=== PATIENT | female | born 1935 | race Caucasian/White ===

== ENCOUNTER → 2016-07-24 | Outpatient (CLI) | payer OTHER ==
[~2016-07-24] MED LIST: ADULT LOW DOSE81 MG PO; AVALIDE 150-121 EACH PO; CALCIUM 600 +1 EAC8 PO; CALICUM 500+D1 EACH PO; FOSAMAX PLUS D1 EACH PO; NORCO 5-325 TA1 EACH PO; VITAMIN D3400 UNI2 PO; VITAMIN D400 UNI1 PO
== END ==
LOC: ULTRA 09:58
DX: R10.11 Right upper quadrant pain (principal)

== ENCOUNTER → 2016-08-05 | Outpatient (CLI) | payer OTHER | LOC: CAT 10:51 | DX: R06.02 Shortness of breath (principal); J90 Pleural effusion, not elsewhere classified; R10.9 Unspecified abdominal pain ==

== ENCOUNTER → 2018-09-30 | Outpatient (CLI) | payer OTHER | LOC: NUC 09-02 15:18 | DX: M85.89 Other specified disorders of bone density and structure, multiple sites (principal); M81.0 Age-related osteoporosis without current pathological fracture; Z78.0 Asymptomatic menopausal state ==

== ENCOUNTER → 2019-02-03 | Outpatient (CLI) | payer OTHER ==
--- NOTE | 2019-02-03 16:06 | 2DMMODE ---
[facility] [place] [address] 2 D/M-MODE ECHOCARDIOGRAM Name: MAYLIN PATE Room #: REG [facility]#: [id number] ������������� Admission: 02/03/19 ������������� Attend Phys: Jose Tapia, Discharge: ��� ������������� ��� Date of : 33 Date of Service: 02/03/19 1606 �� Report #: [id number] �������� ��������������������������������������������[id number] THIS REPORT FOR: //name// APPROVED REPORT Study performed: 02/03/2019 10:54:02 EXAM: Comprehensive 2D, Doppler, and color-flow Echocardiogram Patient Location: Out-Patient Room #: Echo Lab 2 Status: routine BSA: 1.46 HR: 74 bpm BP: 148/80 mmHg Rhythm: NSR Other Information Study Quality: Good Indications Mitral Valve Disease. 2D Dimensions RVDd: 38.06 mm IVSd: 9.40 (7-11mm) LVOT Diam: 18.81 (18-24mm) LVDd: 49.93 mm PWd: 10.54 (7-11mm) Ascending Ao: 32.09 (22-36mm) LVDs: 30.38 (25-40mm) Aortic Root: 26.23 mm Volumes Left Atrial Volume (Systole) Single Plane 4CH: 115.12 mL Single Plane 2CH: 109.15 mL LA ESV Index: 79.00 mL/m2 Aortic Valve AoV Peak Dashawn.: 1.59 m/s AO Peak Gr.: 10.08 mmHg LVOT Max P.53 mmHg LVOT Max V: 1.06 m/s [facility] Vmax: 1.86 cm2 AI Vmax: 4.18 m/s AI Vigo: 2.79 m/s2 AI PHT: 435.21 ms Mitral Valve [facility] [address] [place] [address] 2 D/M-MODE ECHOCARDIOGRAM Name: MAYLIN PATE Room #: [facility]#: [id number] ������������� Admission: 02/03/19 ������������� Attend Phys: Jose Tapia, Discharge: ��� ������������� ��� Date of : 33 Date of Service: 02/03/19 1606 �� Report #: [id number] �������� ��������������������������������������������[id number] E/A Ratio: 2.7 MV Decel. Time: 178.90 ms MV E Max Dashawn.: 2.04 m/s MV A Dashawn.: 0.76 m/s MV PHT: 51.88 ms IVRT: 65.74 ms Pulmonary Valve PV Peak Dashawn.: 0.77 m/s PV Peak Gr.: 2.38 mmHg Tricuspid Valve TR Peak Dashawn.: 2.50 m/s RAP Estimate: 5.00 mmHg TR Peak Gr.: 26.00 mmHg PA Pressure: 31.00 mmHg Left Ventricle The left ventricle is normal size. There is normal LV segmental wall motion. There is normal left ventricular wall thickness. The left ventricular systolic function is normal. LVEF is 60-65%. Severe diastolic dysfunction is present (restrictive filling). Right Ventricle The right ventricle is normal size. The right ventricular systolic function is normal. Atria Left atrium is severely dilated. The right atrium size is normal. Aortic Valve Aortic valve is mildly calcified. Mild aortic regurgitation. There is no aortic valvular stenosis. 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 Probable torn chordae seen prolapsing into the left atrium. Severe mitral regurgitation. Tricuspid Valve The tricuspid valve is normal in structure. Mild tricuspid regurgitation. Estimated PAP is 30-35mmHg. Pulmonic Valve The pulmonary valve is normal in structure. Trace pulmonic regurgitation. [facility] [address] [place] [address] 2 D/M-MODE ECHOCARDIOGRAM Name: MAYLIN PATE HELEN Room #: REG [facility].#: [id number] ������������� Admission: 02/03/19 ������������� Attend Phys: Jose Tapia, Discharge: ��� ������������� ��� Date of : 33 Date of Service: 02/03/19 1606 �� Report #: [id number] �������� ��������������������������������������������[id number] Great Vessels The aortic root is normal in size. The ascending aorta is normal in size. IVC is normal in size and collapses >50% with inspiration. Pericardium There is no pericardial effusion. <Conclusion> The left ventricular systolic function is normal. There is normal LV segmental wall motion. LVEF is 60-65%. Severe diastolic dysfunction Left atrium is severely dilated. Aortic valve is mildly calcified. Mild aortic regurgitation, no stenosis. 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 Probable torn chordae seen prolapsing into the left atrium. Severe, eccentric mitral regurgitation. Mild tricuspid regurgitation. Estimated pulmonary artery pressure of 30-35mmHg. There is no pericardial effusion. ��������������������������������������������� <ELECTRONICALLY SIGNED> ���������������������������������������� By: Primitivo Bush MD, [facility] ��������������������������������������������� 02/03/19 1606 1606 1606 Primitivo Bush MD, [facility] /INF
== END ==
LOC: CV 08:54
DX: I08.3 Combined rheumatic disorders of mitral, aortic and tricuspid valves (principal)

== ENCOUNTER → 2019-02-22 | Outpatient (CLI) | payer OTHER | LOC: RAD 09:20 | DX: J98.4 Other disorders of lung (principal); J90 Pleural effusion, not elsewhere classified; J44.9 Chronic obstructive pulmonary disease, unspecified ==

== ENCOUNTER → 2019-08-09 | Outpatient (CLI) | payer OTHER | LOC: ULTRA 08-02 15:43 | DX: I65.23 Occlusion and stenosis of bilateral carotid arteries (principal) ==

== ENCOUNTER 2020-06-17 10:48 | Emergency (ER) | payer OTHER ==
[~2020-06-17] VITALS: Ht 152.4 cm; Wt 40.8 kg
--- NOTE | ~2020-06-17 | EKG ---
[facility] [place] [address] ELECTROCARDIOGRAM REPORT Name: MAYLIN APTE Room #: [facility]#: [id number] Admission: 06/17/20 Attend Phys: Discharge: 06/17/20 Date of : 33 Report #: [id number] THIS REPORT FOR: cc: Cristino Selby Steven F. 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
[2020-06-17 11:52] LABS: URINE BILIRUBIN NEGATIVE (Negative); URINE BLOOD TRACE (Negative); URINE COLOR YELLOW; URINE GLUCOSE-RANDOM* NEGATIVE (Negative); URINE KETONES NEGATIVE (Negative); URINE LEUKOCYTES-REFLEX NEGATIVE (Negative); URINE NITRITE-REFLEX NEGATIVE (Negative); URINE PROTEIN (DIPSTICK) 2+ (Negative); URINE UROBILINOGEN 0.2 E.U./dl (0.2-1.0)
[2020-06-17 12:02] LABS: URINE CLARITY HAZY
[2020-06-17 12:06] LABS: ABSOLUTE NEUTROPHILS 9.3 thou/uL (1.4-8.2); BASOPHILS 0.3 % (0.0-2.0); EOSINOPHILS 0.1 % (0.0-3.0); HEMATOCRIT 45.8 % (37.0-47.0); HEMOGLOBIN 15.1 gm/dL (12.0-15.0); LYMPHOCYTES 9.9 % (24.0-44.0); MCH 32.3 pg (26.0-34.0); MCV 97.9 fL (80.0-100.0); MONOCYTES 6.8 % (1.0-8.0); POLYS 82.9 % (36.0-66.0); RBC 4.68 mil/uL (4.20-5.00); WBC 11.2 thou/uL (4.0-11.0)
[2020-06-17 12:14] LABS: HYALINE CASTS 0-3 Few /LPF (None Seen); MUCUS 4-6 Moderate strn/LPF (None Seen); SQUAMOUS 4-10 Moderate /LPF (0-3)
[2020-06-17 12:15] LABS: AMORPHOUS PHOSPHATES Few /LPF (None Seen); BACTERIA-REFLEX 1-9 Few /HPF (None Seen); URINE RBC 0-2 Rare /HPF (0-2); URINE WBC-REFLEX 0-5 Rare /HPF (0-5)
[2020-06-17 12:39] LABS: CALCIUM 10.1 mg/dL (8.5-10.1); CREATININE 1.4 mg/dL (0.6-1.0); POTASSIUM 3.4 mmol/L (3.5-5.1)
[2020-06-17 12:45] LABS: ALBUMIN 4.8 g/dL (3.4-5.0); TOTAL BILIRUBIN 0.8 mg/dL (0.2-1.0); TOTAL PROTEIN 7.9 g/dL (6.4-8.2)
[2020-06-17 13:26] LABS: PLATELET COUNT 221 thou/uL (150-400)
[2020-06-17 13:37] VITALS: BP 118/57
== END 2020-06-17 13:46 | disposition home or self-care (01) ==
LOC: ER 10:48
PROVIDERS: Physician Assistant
DX: R00.2 Palpitations (principal); R42 Dizziness and giddiness; M54.2 Cervicalgia; I10 Essential (primary) hypertension; Z90.49 Acquired absence of other specified parts of digestive tract; Z79.899 Other long term (current) drug therapy; Z79.82 Long term (current) use of aspirin; Z88.8 Allergy status to other drugs, medicaments and biological substances

== ENCOUNTER 2020-10-19 09:00 | Observation (INO) | payer OTHER ==
[~2020-10-19] VITALS: Ht 160 cm; Wt 48.1 kg
[2020-10-19 09:02] VITALS: BP 132/60
[2020-10-19] MEDS ORDERED: ALENDRONATE SOD70 MG PO (09:13)
[2020-10-19 09:32] LABS: ABSOLUTE NEUTROPHILS 6.5 thou/uL (1.4-8.2); BASOPHILS 0.6 % (0.0-2.0); EOSINOPHILS 0.2 % (0.0-3.0); HEMATOCRIT 41.8 % (37.0-47.0); HEMOGLOBIN 14.1 gm/dL (12.0-15.0); MCH 32.8 pg (26.0-34.0); MCHC 33.7 g/dL (28.0-37.0); MCV 97.2 fL (80.0-100.0); MONOCYTES 6.6 % (1.0-8.0); PLATELET COUNT 201 thou/uL (150-400); POLYS 80.6 % (36.0-66.0); RDW 12.7 % (10.5-14.5)
[2020-10-19 09:39] LABS: ANION GAP 9 mmol/L (7-16); BUN 14 mg/dL (7-18); CALCIUM 9.5 mg/dL (8.5-10.1); CHLORIDE 101 mmol/L (98-107); CO2 27 mmol/L (21-32); CREATININE 1.1 mg/dL (0.6-1.0); GLUCOSE 176 mg/dL (74-106); POTASSIUM 3.6 mmol/L (3.5-5.1); SODIUM 137 mmol/L (136-145)
[2020-10-19 09:43] LABS: PROTIME 10.9 Seconds (9.3-11.4)
[2020-10-19 09:50] LABS: ALBUMIN 4.1 g/dL (3.4-5.0); DIRECT BILIRUBIN 0.2 mg/dL (<0.1-0.2); SGOT 21 U/L (15-37); SGPT 21 U/L (30-65); TOTAL BILIRUBIN 0.9 mg/dL (0.2-1.0); TROPONIN-I <0.06 ng/mL (<0.06)
--- NOTE | 2020-10-19 14:39 | 2DMMODE ---
[facility] [place] [address] 2 D/M-MODE ECHOCARDIOGRAM Name: MAYLIN PATE Room #: 170-9 ADM IN M.R.#: [id number] Admission: 10/19/20 Attend Phys: Will Ibrahim MD Discharge: Date of : 33 Report #: [id number] THIS REPORT FOR: cc: Cristino Selby,Jg Oliver MD [facility] ~ APPROVED REPORT Study performed: 10/19/2020 13:32:40 EXAM: Comprehensive 2D, Doppler, and color-flow Echocardiogram Patient Location: ER Status: routine BSA: 1.43 HR: 94 bpm BP: 109/54 mmHg Rhythm: Atrial Fibrillation Other Information Study Quality: Good Indications Afib with RVR, severe MR. 2D Dimensions RVDd: 34.42 mm IVSd: 9.58 (7-11mm) LVOT Diam: 18.87 (18-24mm) LVDd: 46.40 mm PWd: 10.08 (7-11mm) Ascending Ao: 28.23 (22-36mm) LVDs: 24.83 (25-40mm) Aortic Root: 30.21 mm Volumes Left Atrial Volume (Systole) Single Plane 4CH: 82.97 mL Single Plane 2CH: 107.55 mL LA ESV Index: 72.00 mL/m2 Aortic Valve AoV Peak Dashawn.: 1.61 m/s AO Peak Gr.: 16.80 mmHg LVOT Max P.63 mmHg AO Mean Gr.: 5.00 mmHg AO V2 Mean: 0.94 m/s LVOT Max V: 1.18 m/s AO V2 VTI: 30.09 cm [facility] [address] [place] [address] 2 D/M-MODE ECHOCARDIOGRAM Name: MAYLIN PATE Room #: [facility] ADM IN [facility]#: [id number] Admission: 10/19/20 Attend Phys: Will Ibrahim MD Discharge: Date of : 33 Report #: [id number] [facility] Vmax: 2.05 cm2 Pulmonary Valve PV Peak Dashawn.: 1.20 m/s PV Peak Gr.: 5.73 mmHg Tricuspid Valve TR Peak Dashawn.: 2.06 m/s RAP Estimate: 10.00 mmHg TR Peak Gr.: 17.00 mmHg PA Pressure: 27.00 mmHg Left Ventricle The left ventricle is normal size. There is normal left ventricular wall thickness. Left ventricular systolic function is hyperdynamic. LVEF is 65-70%. This study is not technically sufficient to allow evaluation of the LV diastolic function due to atrial fibrillation. Right Ventricle The right ventricle is normal size. The right ventricular systolic function is normal. Atria Left atrium is severely dilated. The right atrium size is normal. Aortic Valve The aortic valve is normal in structure; mildly calcified. Mild aortic regurgitation. There is no aortic valvular stenosis. 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 Severe mitral regurgitation. Tricuspid Valve The tricuspid valve is normal in structure. Trace tricuspid regurgitation. Estimated PAP is 27mmHg. Pulmonic Valve The pulmonary valve is normal in structure. Trace pulmonic regurgitation. Great Vessels The aortic root is normal in size. The ascending aorta is normal in size. IVC is normal in size and collapses <50% with inspiration. [facility] [place] [place] [address] 2 D/M-MODE ECHOCARDIOGRAM Name: MAYLIN PATE PARRISH Room #: 170-9 ADM IN M.R.#: [id number] Admission: 10/19/20 Attend Phys: Will Ibrahim MD Discharge: Date of : 34 Report #: [id number] Pericardium There is no pericardial effusion. <Conclusion> Normal left ventricular size/wall thickness Ejection fraction 60% Normal right ventricular size Moderate-severe left atrial enlargement Moderate right atrial enlargement Color-flow Doppler study was performed of the aortic/mitral/tricuspid/pulmonary valve Aortic valve appears to be tricuspid Mild aortic valve insufficiency Moderate- severe mitral valve insufficiency anteriorly directed Myxomatous mitral valve/thickened Borderline prolapse of the posterior leaflet Trace tricuspid valve insufficiency Pulmonary systolic pressure estimated 27 mmHg Normal aortic root size No pericardial effusion. <ELECTRONICALLY SIGNED> By: Jg Ba MD, [facility] 04/03/03 1438 37 37 Jg Ba MD, [facility] /INF
--- NOTE | 2020-10-19 15:30 | EKG ---
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: JCHAISWATI : 1935 Requested By: Mei Garcia Order Number: [id number] MD: Jg Ba Measurements Intervals [place] Rate: 153 P: NC: QRS: 23 QRSD: 80 T: -34 QT: 283 QTc: 452 Interpretive Statements Atrial fibrillation with rapid V-rate Repolarization abnormality, prob rate related Compared to ECG 06/17/2020 10:52:58 Early repolarization now present Sinus rhythm no longer present T-wave abnormality no longer present Electronically Signed On 10-19-2020 15:30:10 CDT by Jg Ba [email or web address] <ELECTRONICALLY SIGNED> By: Jg Ba MD, [facility] 10/19/20 1530 09 09 Jg Ba MD, [facility] /EPI
[2020-10-19 16:08] VITALS: BP 109/54
[2020-10-19 16:19] VITALS: BP 137/76
[2020-10-19 16:41] VITALS: BP 123/73
--- NOTE | 2020-10-19 16:59 | NUR ---
RECEIVED PT FROM ER AT 1620. PT SITTING IN BED. ADMISSION ASSESSMENT PERFORMED CHARTED. PT TALKS VERY LOUDLY DUE TO HEARING LOSS AND REFUSING TO WEAR HEARING AIDS. PT COOPERATIVE. PT DOES NOT VOICE ANY OTHER CONCERNS AT THIS TIME. PT DENIES PAIN. VSS. WILL CONTINUE TO MONITOR AND FOLLOW POC.
[2020-10-19 19:55] VITALS: BP 109/58
[2020-10-19 23:32] VITALS: BP 120/59
--- NOTE | 2020-10-20 04:58 | NUR ---
PT SLEEPING. PLEASANT ALERT AND ORIENTED X4. UP AD MARGARET TO BATHROOM STEADY GAIT. NO SHORTNESS OF BREATH ROOM AIR LUNGS ARE CLEAR. ABDOMEN IS FLAT BOWEL SOUNDS ACTIVE. DENIES ANY PAIN ISSUES. AFIB ON THE CLAMMER. WILL CONTINUE TO ASSESS AND MONITOR PER NURSING
[2020-10-20 05:27] VITALS: BP 136/70
[2020-10-20 08:20] VITALS: BP 120/82
[2020-10-20] MEDS ORDERED: ELIQUIS2.5 MG PO (09:21)
[2020-10-20] MEDS ORDERED: DILTIAZEM 24HR120 M1 PO (09:21)
[2020-10-20 12:00] VITALS: BP 127/64
[2020-10-20 12:07] VITALS: BP 127/64
[2020-10-20] MEDS ORDERED: CARDIZEM CD240 M1 PO (13:06)
[2020-10-20 14:04] VITALS: BP 127/64
--- NOTE | 2020-10-20 16:43 | NUR ---
PT CARE ASSUMED AT 1230. ASSESSMENTS CHARTED. MEDICATIONS CHARTED. RAC IV. AFIB. EF 60-70%. PT TO BE DISCHARGED HOME. DISCHARGE PAPERWORK SIGNED. TELEMETRY D/C'D. IV D/C'D.
== END 2020-10-20 16:15 | disposition home or self-care (01) ==
LOC: ER 09:00 → 2N 10:55 → EROBS 10:55 → 2N 16:17
PROVIDERS: Emergency Medicine; ADMIT Internal Medicine; ATTEND Internal Medicine
DX: I48.20 Chronic atrial fibrillation, unspecified (principal); I10 Essential (primary) hypertension; F32.9 Major depressive disorder, single episode, unspecified; R54 Age-related physical debility; M85.80 Other specified disorders of bone density and structure, unspecified site; Z90.2 Acquired absence of lung [part of]; Z90.49 Acquired absence of other specified parts of digestive tract; Z79.899 Other long term (current) drug therapy; Z79.82 Long term (current) use of aspirin
CPT/HCPCS: 10081

== ENCOUNTER → 2020-11-13 | Outpatient (CLI) | payer OTHER ==
[~2020-11-13] MED LIST changes: +ALENDRONATE SOD70 MG PO; +CARDIZEM CD240 M1 PO; +DILTIAZEM 24HR120 M1 PO; +ELIQUIS2.5 MG PO
== END ==
LOC: SJCVCIMAG 11-10 07:31
PROVIDERS: ATTEND Internal Medicine
DX: I48.91 Unspecified atrial fibrillation (principal); I48.92 Unspecified atrial flutter; J43.9 Emphysema, unspecified; I10 Essential (primary) hypertension; I34.0 Nonrheumatic mitral (valve) insufficiency; M81.0 Age-related osteoporosis without current pathological fracture; Z90.49 Acquired absence of other specified parts of digestive tract; Z98.890 Other specified postprocedural states; Z72.89 Other problems related to lifestyle; Z79.899 Other long term (current) drug therapy

== ENCOUNTER → 2020-11-27 | Outpatient (CLI) | payer OTHER | LOC: SJCVC 16:22 | PROVIDERS: ATTEND Internal Medicine | DX: I48.91 Unspecified atrial fibrillation (principal); J30.9 Allergic rhinitis, unspecified; I08.0 Rheumatic disorders of both mitral and aortic valves; I10 Essential (primary) hypertension; J98.4 Other disorders of lung; M81.0 Age-related osteoporosis without current pathological fracture; Z79.899 Other long term (current) drug therapy ==

== ENCOUNTER → 2020-11-29 | Outpatient (CLI) | payer OTHER ==
[~2020-11-29] MED LIST changes: +FUROSEMIDE 40 M40 MG PO; +POTASSIUM20 PO; +TOPROL XL25 MG PO
== END ==
LOC: SJCVCIMAG 12:47
PROVIDERS: ATTEND Internal Medicine
DX: R60.0 Localized edema (principal); M79.604 Pain in right leg; M79.605 Pain in left leg; M79.89 Other specified soft tissue disorders; R94.31 Abnormal electrocardiogram [ECG] [EKG]; I48.91 Unspecified atrial fibrillation; J43.9 Emphysema, unspecified; I10 Essential (primary) hypertension; M81.0 Age-related osteoporosis without current pathological fracture; F10.10 Alcohol abuse, uncomplicated; Z90.49 Acquired absence of other specified parts of digestive tract; Z98.890 Other specified postprocedural states; Z79.899 Other long term (current) drug therapy

== ENCOUNTER → 2020-12-04 | Outpatient (CLI) | payer OTHER ==
[~2020-12-04] VITALS: Ht 157.5 cm; Wt 45.0 kg
[2020-12-04 07:11] VITALS: BP 129/70
--- NOTE | 2020-12-04 08:32 | EKG ---
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 : 1935 Requested By: Jg Ba Order Number: [id number] MD: Jg Ba Measurements Intervals [place] Rate: 105 P: 80 AK: 168 QRS: 22 QRSD: 86 T: 2 QT: 348 QTc: 461 Interpretive Statements Sinus tachycardia Left atrial enlargement Probable left ventricular hypertrophy Compared to ECG 10/19/2020 09:03:53 Atrial abnormality now present Atrial fibrillation no longer present Early repolarization no longer present Electronically Signed On 12-04-2020 8:32:00 CDT by Jg Ba [email or web address] <ELECTRONICALLY SIGNED> By: Jg Ba MD, [facility] [id number] 3 3 Jg Ba MD, [facility] /EPI
--- NOTE | 2020-12-04 09:19 | TEE ---
[facility] [place] [address] TRANSESOPHAGEAL ECHOCARDIOGRAM Name: MAYLIN PATE Room #: REG [facility]#: [id number] Admission: 12/04/20 Attend Phys: Jg Ba MD, Discharge: Date of : 34 Report #: [id number] THIS REPORT FOR: cc: Cristino Selby,Jg Oliver MD [facility] ~ APPROVED REPORT Study performed: 12/04/2020 07:52:32 EXAM: Comprehensive 2D, Doppler, and color-flow Echocardiogram Patient Location: Out-Patient Room #: 9 Status: routine BSA: 1.42 HR: 125 bpm BP: 114/63 mmHg Rhythm: Atrial Flutter Other Information Study Quality: Good Indications Atrial Flutter Echo Enhancing Agent Indication: Rule out Shunt Agent(s) / Amount(s) Used: Agitated Saline 7 cc Procedure After obtaining informed consent, patient underwent transesophageal echo in the [facility]. Type of Sedation : Conscious Sedation Sedation was administered by Natividad Zelaya RN. Sedation start time: 0800 Case end Time: 806 Sedation was achieved intravenously with: Versed (3 mg) Fentanyl (25 mcg) Transesophageal probe was inserted and advanced into esophagus without difficulty by Jg Ba MD. Echo enhancement indication: R/O Septal defect. Echo enhancement agent administered: Agitated Saline The TOBY was performed without complications. Synchronized Cardioversion acheived with 50 Joules after 1 [facility] [address] [place] [address] TRANSESOPHAGEAL ECHOCARDIOGRAM Name: MAYLIN PATE Room #: REG [facility].#: [id number] Admission: 12/04/20 Attend Phys: Jg Ba, Discharge: Date of : 34 Report #: [id number] attempt(s). Rhythm following Synchronized Cardioversion: Normal Sinus Rhythm Throughout the procedure, the blood pressure, pulse oximetry, cardiac rhythm, and rate were monitored. The patient tolerated the procedure without adverse effects. Recovery from conscious sedation was uneventful and vital signs were stable. Left Ventricle The left ventricle is normal size. There is normal left ventricular wall thickness. The left ventricular systolic function is normal. The left ventricular ejection fraction is within the normal range. LVEF is 55-60%. Right Ventricle The right ventricle is normal size. The right ventricular systolic function is normal. Atria Left atrium is dilated. Interatrial septum is intact without evidence of ASD or PFO. The right atrium size is normal. Aortic Valve The aortic valve is normal in structure. Mild aortic regurgitation. There is no aortic valvular stenosis. Mitral Valve The mitral valve is normal in structure. Torn chordae is noted Moderate to severe mitral regurgitation No evidence of mitral valve stenosis. Prolapse of the posterior mitral valve leaflet. Tricuspid Valve The tricuspid valve is normal in structure. There is no tricuspid valve regurgitation noted. Pulmonic Valve The pulmonary valve is normal in structure. There is no pulmonic valvular regurgitation. Great Vessels The aortic root is normal in size. Pericardium There is no pericardial effusion. <Conclusion> [facility] [address] [place] [address] TRANSESOPHAGEAL ECHOCARDIOGRAM Name: MAYLIN PATE HELEN Room #: REG [facility] ..#: [id number] Admission: 12/04/20 Attend Phys: Jg Ba, Discharge: Date of : 34 Report #: [id number] Consent was obtained Timeout was performed After appropriate sedation, esophageal probe was advanced without difficulty Normal left ventricle size/wall thickness Ejection fraction 50-55% Normal right ventricular size/function Moderate biatrial enlargement Left atrial appendage large, no obvious mass or clot detected Aortic valve trileaflet Mild aortic valve insufficiency Moderate to severe eccentric mitral valve insufficiency Mild to moderate prolapse of the posterior leaflet No tricuspid valve insufficiency No pericardial effusion Aorta/ minimal calcification Patient was successfully cardioverted to sinus rhythm after 50J in a biphasic mode Patient tolerated procedure well <ELECTRONICALLY SIGNED> By: Jg Ba MD, [facility] 12/04/20918 8 8 Jg Ba MD, [facility] /INF
== END | disposition home or self-care (01) ==
LOC: CATH 06:18
PROVIDERS: ATTEND Internal Medicine
DX: I48.92 Unspecified atrial flutter (principal); I08.0 Rheumatic disorders of both mitral and aortic valves; I10 Essential (primary) hypertension; I48.91 Unspecified atrial fibrillation; E78.5 Hyperlipidemia, unspecified; M85.80 Other specified disorders of bone density and structure, unspecified site; Z98.890 Other specified postprocedural states; Z79.899 Other long term (current) drug therapy; Z79.01 Long term (current) use of anticoagulants

== ENCOUNTER → 2020-12-08 | Outpatient (CLI) | payer OTHER | LOC: SJCVC 11:04 | PROVIDERS: ATTEND Internal Medicine | DX: I48.0 Paroxysmal atrial fibrillation (principal); J43.9 Emphysema, unspecified; I10 Essential (primary) hypertension; I34.0 Nonrheumatic mitral (valve) insufficiency; I34.1 Nonrheumatic mitral (valve) prolapse; M81.0 Age-related osteoporosis without current pathological fracture; Z72.89 Other problems related to lifestyle; Z79.899 Other long term (current) drug therapy ==

== ENCOUNTER → 2020-12-15 | Outpatient (CLI) | payer OTHER | LOC: SJCVC 10:10 | PROVIDERS: ATTEND Internal Medicine | DX: R60.0 Localized edema (principal); I10 Essential (primary) hypertension; I48.91 Unspecified atrial fibrillation; M81.0 Age-related osteoporosis without current pathological fracture; J43.9 Emphysema, unspecified; I34.0 Nonrheumatic mitral (valve) insufficiency; Z79.899 Other long term (current) drug therapy; Z95.2 Presence of prosthetic heart valve ==

== ENCOUNTER → 2020-12-29 | Outpatient (CLI) | payer OTHER | LOC: SJCVC 10:04 | PROVIDERS: ATTEND Internal Medicine | DX: I48.91 Unspecified atrial fibrillation (principal); J43.9 Emphysema, unspecified; I10 Essential (primary) hypertension; I34.0 Nonrheumatic mitral (valve) insufficiency; M81.0 Age-related osteoporosis without current pathological fracture; Z72.89 Other problems related to lifestyle ==

== ENCOUNTER → 2021-02-26 | Outpatient (CLI) | payer OTHER | LOC: SJCVC 10:24 | PROVIDERS: ATTEND Internal Medicine | DX: I48.0 Paroxysmal atrial fibrillation (principal); I10 Essential (primary) hypertension; J43.9 Emphysema, unspecified; I34.0 Nonrheumatic mitral (valve) insufficiency; M81.0 Age-related osteoporosis without current pathological fracture; J98.4 Other disorders of lung; R60.0 Localized edema; F10.10 Alcohol abuse, uncomplicated; Z90.49 Acquired absence of other specified parts of digestive tract; Z98.890 Other specified postprocedural states; Z79.899 Other long term (current) drug therapy ==

== ENCOUNTER → 2021-05-29 | Outpatient (CLI) | payer OTHER | END | disposition home or self-care (01) | LOC: SJCVC 10:11 | PROVIDERS: ATTEND Internal Medicine | DX: I34.0 Nonrheumatic mitral (valve) insufficiency (principal); I10 Essential (primary) hypertension; I48.91 Unspecified atrial fibrillation; J43.9 Emphysema, unspecified; J98.4 Other disorders of lung; M19.90 Unspecified osteoarthritis, unspecified site; I34.1 Nonrheumatic mitral (valve) prolapse; Z79.899 Other long term (current) drug therapy; Z90.49 Acquired absence of other specified parts of digestive tract; Z98.890 Other specified postprocedural states ==